=== PATIENT | female | born 1995 | race Caucasian/White ===

== ENCOUNTER 2023-03-29 08:05 | Inpatient (IN) | payer MEDICAID, OTHER ==
[~2023-03-29] VITALS: Ht 162.6 cm; Wt 81.6 kg
[~2023-03-29 08:05] MED LIST: FERR325T23 PO; IBUP-2030 PO
[2023-03-29] MEDS ORDERED: LIDOCAINE HCL 1% 20ML VIAL (Pyxis) INJ INFIL SCH (12:30)
[2023-03-29] MEDS ORDERED: CARBOPROST TROMETHAMINE 250 MCG/ML AMPUL IM PRN (12:30)
[2023-03-29] MEDS ORDERED: NALOXONE HCL 0.4 MG/ML 1ML VIAL IM PRN (12:30)
[2023-03-29] MEDS: LACTATED RINGERS 1,000 ML IV SCH ×5 (12:59→23:05)
[2023-03-29] MEDS ORDERED: RHO(D) IMMUNE GLOBULIN 300 MCG/SYR IM NR (13:00)
[2023-03-29] MEDS: OXYTOCIN 30 UNITS/500ML NS PMX 500 ML IV SCH (13:03)
[2023-03-29 13:30] LABS: BASOPHILS % 0.3 % (0.0-2.0); EOSINOPHILS % 0.3 % (0.0-5.0); HEMATOCRIT. 32.2 % (36.0-48.0); HEMOGLOBIN. 11.6 g/dL (12.0-16.0); LYMPHOCYTES % 16.8 % (20.0-50.0); MEAN CORPUSCULAR HEMOGLOBIN 31.1 pg (28.0-32.0); MEAN CORPUSCULAR HGB CONC 35.9 g/dL (31.0-37.0); MEAN CORPUSCULAR VOLUME 86.6 fL (81.0-99.0); MEAN PLATELET VOLUME 8.3 fl (7.4-10.4); MONOCYTES % 5.8 % (2.0-8.0); NEUTROPHILS % 76.8 % (40.0-76.0); PLATELET 313 x1000/uL (130-400); RED BLOOD CELL COUNT 3.72 mill/uL (4.2-5.4); RED CELL DISTRIBUTION WIDTH 12.7 % (11.6-14.6); WHITE BLOOD COUNT 7.9 x1000/uL (4.5-11.0)
[2023-03-29] MEDS ORDERED: HYDRALAZINE 20MG/ML VIAL IV PRN ×2 (13:30→22:30)
[2023-03-29] MEDS ORDERED: LABETALOL HCL 5MG/ML VIAL 20ML IV PRN ×6 (13:30→22:30)
[2023-03-29 13:43] LABS: RAPID HIV SCREEN NEGATIVE (NEGATIVE)
[2023-03-29 14:08] LABS: CLARITY URINE CLOUDY (CLEAR); COLOR URINE YELLOW (YELLOW); GLUCOSE URINE NEGATIVE (NEGATIVE); KETONES URINE NEGATIVE (NEGATIVE); LEUKOCYTE ESTERASE URINE 2+ (NEGATIVE); NITRITE URINE NEGATIVE (NEGATIVE); OCCULT BLOOD URINE 1+ (NEGATIVE); PROTEIN URINE NEGATIVE (NEGATIVE); UROBILINOGEN URINE 0.2 E.U./dL (0.2-1.0)
[2023-03-29 14:30] LABS: BACTERIA URINE 4+; SQUAMOUS EPITHELIAL CELL URINE 3+ /lpf (RARE/1+); YEAST URINE NONE SEEN
[2023-03-29 14:45] LABS: *AMPHETAMINES SCREEN URINE NEGATIVE (NEGATIVE); *BARBITURATES SCREEN URINE NEGATIVE (NEGATIVE); *BENZODIAZEPINES SCREEN URINE NEGATIVE (NEGATIVE); *COCAINE SCREEN URINE NEGATIVE (NEGATIVE); CANNABINOID URINE SCREEN NEGATIVE (NEGATIVE); ECSTASY MDMA SCREEN URINE NEGATIVE (NEGATIVE); METHADONE URINE SCREEN NEGATIVE (NEGATIVE); OPIATES URINE SCREEN NEGATIVE (NEGATIVE); PHENCYCLIDINE URINE SCREEN NEGATIVE (NEGATIVE)
[2023-03-29 14:58] LABS: CHLORIDE 111 mEq/L (98-107); INDEX HEMOLYSI 1 (1-3); INDEX ICTERIC 1 (1-4); INDEX LIPEMIC 1 (1-3); POTASSIUM 3.8 mEq/L (3.5-5.1); SODIUM 136 mEq/L (136-145)
[2023-03-29 15:08] LABS: ALANINE AMINOTRANSFERASE 51 IU/L (13-61); ALBUMIN 2.7 g/dL (3.4-5.0); ASPARTATE AMINOTRANSFERASE 42 IU/L (15-37); BILIRUBIN TOTAL 0.7 mg/dL (0.1-1.0); CALCIUM 8.8 mg/dL (8.5-10.1); CARBON DIOXIDE 22 mEq/L (21-32); CREATININE 0.6 mg/dL (0.6-1.3); GLUCOSE 102 mg/dL (70-105); PROTEIN TOTAL 6.8 g/dL (6.0-8.3); UREA NITROGEN BLOOD 12 mg/dL (7-21); URIC ACID 5.4 mg/dL (2.6-7.2)
[2023-03-29 15:30] LABS: D-DIMER 6.37 mg/L FEU (<0.50); INR 0.9; PARTIAL THROMBOPLASTIN TIME 27.7 sec (23.4-31.0); PROTHROMBIN TIME 9.9 sec (9.6-11.0)
[2023-03-29 15:39] LABS: HEPATITIS B SURFACE ANTIGEN NEGATIVE
[2023-03-29 15:56] LABS: RUBELLA IGG > 500.0 IU/mL (4.99-10)
[2023-03-29] MEDS ORDERED: NIFE-32 MT (17:55)
[2023-03-29] MEDS ORDERED: ASPI-1497 PO (17:56)
[2023-03-29] MEDS ORDERED: ROPIVACAINE HCL/PF EPIDURAL 200 ML EPI SCH (18:30)
[2023-03-29] MEDS ORDERED: NIFEDIPINE XL 60MG TAB PO SCH (21:00)
[2023-03-29] MEDS ORDERED: LABETALOL HCL 5MG/ML VIAL 20ML IV NR (22:00)
[2023-03-30] MEDS: LACTATED RINGERS 1,000 ML IV SCH (05:19)
[2023-03-30] MEDS ORDERED: FENTANYL CITRATE/PF 50MCG/ML 2ML VIAL ONE (11:56)
[2023-03-30] MEDS ORDERED: MIDAZOLAM HCL 2 MG/2 ML VIAL ONE (11:57)
[2023-03-30] MEDS ORDERED: ONDANSETRON HCL 4MG/2ML INJ IV PRN ×3 (12:30→13:45)
[2023-03-30] MEDS ORDERED: MEPERIDINE HCL/PF 25MG/ML CPJ IV PRN (12:30)
[2023-03-30] MEDS ORDERED: HYDROMORPHONE HCL/PF 2MG/ML CPJ IV PRN (12:30)
[2023-03-30] MEDS ORDERED: LABETALOL 5MG/ML SYR 20 MG/4 ML SYRINGE IV PRN (12:30)
[2023-03-30] MEDS ORDERED: LABETALOL HCL 5MG/ML VIAL 20ML IV PRN (12:45)
[2023-03-30] MEDS ORDERED: MEPERIDINE HCL/PF 50MG/ML CPJ IV NR (13:15)
[2023-03-30] MEDS ORDERED: MEPERIDINE HCL/PF 25MG/ML CPJ IV ONE (13:15)
[2023-03-30] MEDS ORDERED: LANOLIN OINT 7GM TUBE TOP PRN ×2 (13:30→13:45)
[2023-03-30] MEDS ORDERED: IBUPROFEN 400MG TABLET PO PRN ×2 (13:30→13:45)
[2023-03-30] MEDS ORDERED: HEMORRHOIDAL SUPP PR PRN ×2 (13:30→13:45)
[2023-03-30] MEDS ORDERED: BISACODYL 10MG SUPP PR PRN ×2 (13:30→13:45)
[2023-03-30] MEDS ORDERED: RHO(D) IMMUNE GLOBULIN 300 MCG/SYR IM PRN ×2 (13:30→13:45)
[2023-03-30] MEDS ORDERED: DIPHENHYDRAMINE 25MG CAPSULE PO PRN ×2 (13:30→13:45)
[2023-03-30] MEDS ORDERED: IBUPROFEN 800MG TABLET PO PRN (13:30)
[2023-03-30] MEDS ORDERED: OXYCODONE HCL/ACETAMINOPHEN 5/325MG TABLET PO PRN ×2 (13:30→13:45)
[2023-03-30] MEDS ORDERED: OXYTOCIN 30 UNITS/500ML NS PMX 500 ML IV SCH ×2 (13:30→13:45)
[2023-03-30 15:30] VITALS: BP 135/77; PULSE 73; RESP 18; TEMP 98.9; O2SAT 97
[2023-03-30 16:00] VITALS: BP 144/80; PULSE 74; RESP 18; TEMP 98
[2023-03-30] MEDS: CEFAZOLIN 2,000 MG in DEXT 5% WATER 100 ML IV SCH (16:58)
[2023-03-30] MEDS ORDERED: SIMETHICONE 80MG TABLET CHEW PO SCH (17:00)
[2023-03-30] MEDS ORDERED: MAGNESIUM/ALUMINUM HYDROXIDE/SIMETHICONE 30ML UDC PO SCH (17:00)
[2023-03-30] MEDS: KETOROLAC 30MG/ML VIAL IV PRN ×2 (18:15→22:38)
[2023-03-30 19:35] VITALS: BP 145/82; PULSE 81; RESP 18; TEMP 99.1; O2SAT 97
[2023-03-30] MEDS: OXYTOCIN 30 UNITS/500ML NS PMX 500 ML IV SCH (20:47)
[2023-03-30] MEDS ORDERED: DOCUSATE SODIUM 100MG CAPSULE PO SCH (21:00)
[2023-03-30] MEDS: MAGNESIUM/ALUMINUM HYDROXIDE/SIMETHICONE 30ML UDC PO SCH (21:15)
[2023-03-30] MEDS: DOCUSATE SODIUM 100MG CAPSULE PO SCH (21:24)
[2023-03-30] MEDS: SIMETHICONE 80MG TABLET CHEW PO SCH (21:25)
[2023-03-31 00:01] VITALS: BP 146/81; PULSE 74; RESP 18; TEMP 99
[2023-03-31] MEDS: CEFAZOLIN 2,000 MG in DEXT 5% WATER 100 ML IV SCH ×2 (00:21→08:46)
[2023-03-31 04:00] VITALS: BP 123/78; PULSE 78; RESP 18; TEMP 98.7
[2023-03-31] MEDS: KETOROLAC 30MG/ML VIAL IV PRN (04:22)
[2023-03-31 06:36] LABS: BASOPHILS % 0.1 % (0.0-2.0); EOSINOPHILS % 0.4 % (0.0-5.0); HEMATOCRIT. 22.1 % (36.0-48.0); HEMOGLOBIN. 7.8 g/dL (12.0-16.0); LYMPHOCYTES % 10.8 % (20.0-50.0); MEAN CORPUSCULAR HEMOGLOBIN 30.8 pg (28.0-32.0); MEAN CORPUSCULAR HGB CONC 35.3 g/dL (31.0-37.0); MEAN CORPUSCULAR VOLUME 87.1 fL (81.0-99.0); MEAN PLATELET VOLUME 8.1 fl (7.4-10.4); MONOCYTES % 9.3 % (2.0-8.0); NEUTROPHILS % 79.4 % (40.0-76.0); PLATELET 219 x1000/uL (130-400); RED BLOOD CELL COUNT 2.54 mill/uL (4.2-5.4); RED CELL DISTRIBUTION WIDTH 12.8 % (11.6-14.6); WHITE BLOOD COUNT 8.5 x1000/uL (4.5-11.0)
[2023-03-31] MEDS: MAGNESIUM/ALUMINUM HYDROXIDE/SIMETHICONE 30ML UDC PO SCH ×2 (07:30→20:52)
[2023-03-31 08:00] VITALS: BP 123/82; PULSE 89; RESP 18; TEMP 98.5; O2SAT 99
[2023-03-31] MEDS: SIMETHICONE 80MG TABLET CHEW PO SCH ×2 (08:46→20:53)
[2023-03-31] MEDS: FERROUS SULFATE 325MG TABLET PO SCH (08:46)
[2023-03-31] MEDS: NIFEDIPINE XL 60MG TAB PO SCH (08:46)
[2023-03-31] MEDS: PRENATAL VIT/FE FUMARATE/FA TABLET PO SCH (08:46)
[2023-03-31] MEDS ORDERED: FERROUS SULFATE 325MG TABLET PO SCH (09:00)
[2023-03-31] MEDS ORDERED: PRENATAL VIT/FE FUMARATE/FA TABLET PO SCH (09:00)
[2023-03-31 12:00] VITALS: BP 135/75; PULSE 79; RESP 18; TEMP 98.7
[2023-03-31 16:00] VITALS: BP 115/72; PULSE 97; RESP 18; TEMP 97.5
[2023-03-31 20:25] VITALS: BP 125/76; PULSE 89; RESP 18; TEMP 98.6; O2SAT 98
[2023-03-31] MEDS: DOCUSATE SODIUM 100MG CAPSULE PO SCH (20:53)
[2023-03-31] MEDS: IBUPROFEN 800MG TABLET PO PRN (20:53)
[2023-03-31] MEDS: IRON SUCROSE COMPLEX 100 MG/5 ML ML IV SCH (20:56)
[2023-04-01 04:00] VITALS: BP 118/70; PULSE 76; RESP 18; TEMP 98.5
[2023-04-01 08:00] VITALS: BP 118/66; PULSE 85; RESP 18; TEMP 98.5; O2SAT 96
[2023-04-01] MEDS: FERROUS SULFATE 325MG TABLET PO SCH ×3 (08:47→18:40)
[2023-04-01] MEDS: NIFEDIPINE XL 60MG TAB PO SCH (08:47)
[2023-04-01] MEDS: SIMETHICONE 80MG TABLET CHEW PO SCH ×2 (08:47→21:21)
[2023-04-01] MEDS: PRENATAL VIT/FE FUMARATE/FA TABLET PO SCH (08:47)
[2023-04-01] MEDS: IBUPROFEN 800MG TABLET PO PRN ×2 (11:25→18:40)
[2023-04-01 12:00] VITALS: BP 131/78; PULSE 98; RESP 18; TEMP 97.7
[2023-04-01 16:00] VITALS: BP 127/79; PULSE 96; RESP 18; TEMP 98
[2023-04-01 20:00] VITALS: BP 130/85; PULSE 97; RESP 18; TEMP 98.2; O2SAT 99
[2023-04-01] MEDS: IRON SUCROSE COMPLEX 100 MG/5 ML ML IV SCH (21:21)
[2023-04-01] MEDS: MAGNESIUM/ALUMINUM HYDROXIDE/SIMETHICONE 30ML UDC PO SCH (21:21)
[2023-04-01] MEDS: DOCUSATE SODIUM 100MG CAPSULE PO SCH (21:21)
[2023-04-02 04:00] VITALS: BP 123/72; PULSE 95; RESP 18; TEMP 98.4
[2023-04-02] MEDS: IBUPROFEN 800MG TABLET PO PRN (04:11)
[2023-04-02] MEDS: NIFEDIPINE XL 60MG TAB PO SCH (09:20)
[2023-04-02] MEDS: FERROUS SULFATE 325MG TABLET PO SCH (09:21)
[2023-04-02] MEDS: MAGNESIUM/ALUMINUM HYDROXIDE/SIMETHICONE 30ML UDC PO SCH (09:21)
[2023-04-02] MEDS: SIMETHICONE 80MG TABLET CHEW PO SCH (09:21)
[2023-04-02] MEDS: PRENATAL VIT/FE FUMARATE/FA TABLET PO SCH (09:21)
[2023-04-02 09:22] LABS: BASOPHILS % 0.4 % (0.0-2.0); EOSINOPHILS % 1.6 % (0.0-5.0); HEMATOCRIT. 23.5 % (36.0-48.0); HEMOGLOBIN. 8.1 g/dL (12.0-16.0); LYMPHOCYTES % 23.1 % (20.0-50.0); MEAN CORPUSCULAR HEMOGLOBIN 30.3 pg (28.0-32.0); MEAN CORPUSCULAR HGB CONC 34.4 g/dL (31.0-37.0); MEAN PLATELET VOLUME 7.5 fl (7.4-10.4); MONOCYTES % 6.1 % (2.0-8.0); NEUTROPHILS % 68.8 % (40.0-76.0); PLATELET 358 x1000/uL (130-400); RED BLOOD CELL COUNT 2.67 mill/uL (4.2-5.4); RED CELL DISTRIBUTION WIDTH 12.5 % (11.6-14.6); WHITE BLOOD COUNT 7.5 x1000/uL (4.5-11.0)
[2023-04-02 09:39] VITALS: BP 137/86; PULSE 83; RESP 20; TEMP 98.5
[2023-04-02 09:40] VITALS: O2SAT 99
== END 2023-04-02 12:30 | disposition home or self-care (01) | DRG 540 ==
LOC: OBSVTOIN 08:05 → 8 EST LDRP 08:05 → 8EST 03-30 15:40
PROVIDERS: ADMIT Obstetrics & Gynecology; ATTEND Obstetrics & Gynecology
PROC: 10D00Z1 Extraction of Products of Conception, Low, Open Approach (ICD-10-PCS; principal; 2023-03-30)
DX: O44.03 Complete placenta previa NOS or without hemorrhage, third trimester (principal); D62 Acute posthemorrhagic anemia; O16.4 Unspecified maternal hypertension, complicating childbirth; O99.02 Anemia complicating childbirth; O69.81X0 Labor and delivery complicated by cord around neck, without compression, not applicable or unspecified; Z3A.39 39 weeks gestation of pregnancy; Z37.0 Single live birth
CPT/HCPCS: 36415; 76805; 76815; 76818; 80053; 80305; 81003; 84550; 85025; 85379; 85384; 86592; 86703; 86762; 86850; 86900; 87340; 88307; 99281; G0378; J0690; J1170; J1885; J2175; J2250; J2795; J3010; J3490; J7060; J7120; A4315; J2590